=== PATIENT | male | born 1955 | race Caucasian/White ===

== ENCOUNTER → 2016-11-05 | Day surgery (SDC) | payer OTHER ==
[~2016-11-05] VITALS: Ht 182.9 cm; Wt 95.3 kg
[~2016-11-05] MED LIST: CABE0.5T7 PO; CALC-1009 PO; DOXA2TAB52 PO; GLUC1CAP6 PO; LEVO25TA2 PO; PRA20 PO; SAWP1CAP PO; Sodium Chloride LOK Flush 10 mL Syringe IV PRN; UBID100C16 PO; fentaNYL-PF 50 mCg/mL 2 mL Inj IVPUSH PRN
[2016-11-05 09:51] VITALS: BP 136/80; PULSE 67; O2SAT 100
[2016-11-05] MEDS: 0.9% Sodium Chloride 1,000 ML IV SCH ×2 (10:02→10:25)
[2016-11-05 10:34] VITALS: BP 126/75; PULSE 68; RESP 12; O2SAT 99
[2016-11-05 10:42] VITALS: BP 125/73; PULSE 82; RESP 14; O2SAT 98
--- NOTE | 2016-11-05 17:48 | ENDO ---
[address] [address] ENDOSCOPY PROCEDURE PATIENT: JARROD REA : 1955 MR#: [id number] ADMIT: 11/05/2016 JOB ID: [id number] DATE OF SERVICE: 11/05/2016 PROCEDURE: Colonoscopy. INDICATIONS: Screening. Patient's ASA classification is 2. Mallampati score is 2. MEDICATIONS: 1. Versed 5 mg. 2. Fentanyl 100 mcg. INSTRUMENT USED: PCF H 180 AL. PREPARATION QUALITY: Good. PROCEDURE DETAILS: After informed consent was obtained, the patient was brought into the GI suite, where he was placed on oxygen via nasal cannula and monitored with continuous pulse oximeter, telemetry, and blood pressure monitoring. A time-out was performed. Then, he was placed in the left lateral decubitus position and medications were administered for sedation. A digital rectal exam was performed which was unremarkable. The colonoscope was then inserted into the rectum and advanced under direct visualization to the cecum, which was identified by the presence of the ileocecal valve and appendiceal orifice. Once the cecum was reached, the colonoscope was withdrawn back into the rectum as the mucosa and lumen were examined. In the rectum, retroflexion was performed. Following retroflexion, remaining air in the rectum was suctioned, and procedure was completed. FINDINGS: 1. In the descending colon, there was an approximately 3-4 mm sessile polyp that was removed with a cold snare. 2. Scattered diverticula were seen throughout the descending colon. Retroflexed views in the rectum revealed small internal hemorrhoids. IMPRESSION: 1. Descending colon polyp. 2. Left-sided diverticulosis. 3. Small internal hemorrhoids. RECOMMENDATIONS: 1. Fiber-rich diet. 2. Repeat colonoscopy pending polyp pathology results. COMPLICATIONS: None. ESTIMATED BLOOD LOSS: Less than 5 mL.
--- NOTE | 2016-11-06 13:20 | PATH ---
SURGICAL PATHOLOGY Attending Physician:Dario Rooney CASE STATUS: Signed Out PATIENT NAME: JARROD REA PID: [id number] : 1955 DATE COLLECTED:11/05/2016 15:43 SPECIMEN: Colon, Polyp CLINICAL HISTORY: 1). DESCENDING POLYP X1 FINAL DIAGNOSIS: Descending Colon Polyp: Submucosal small leiomyoma. ICD10: D12.4 GROSS DESCRIPTION: The specimen is received in one formalin filled container labeled with the patient's name, sublabeled "descending polyp" and consists of a 0.3 x 0.3 x 0.3 CM portion of tissue which is entirely submitted in one cassette. 11/05/2016DC ICD-9 CODES: CPT CODES: 1: 44431 Electronically Signed Out Joni Ariza MD [facility] [address], [place] [address] Technical component performed at [facility], [address] [place] [address] Ave[address], [address]
== END | disposition home or self-care (01) ==
LOC: END 00:08
PROVIDERS: ATTEND Internal Medicine Gastroenterology
DX: Z12.11 Encounter for screening for malignant neoplasm of colon (principal); D12.4 Benign neoplasm of descending colon; K57.30 Diverticulosis of large intestine without perforation or abscess without bleeding; K64.8 Other hemorrhoids; Z79.899 Other long term (current) drug therapy; Z88.1 Allergy status to other antibiotic agents
CPT/HCPCS: 45385; G0500; J2250; J3010; J7030